=== PATIENT | male | born 1970 | race Caucasian/White ===

== ENCOUNTER 2022-01-26 10:26 | Emergency (ER) | payer BC, SELFPAY ==
[2022-01-26 10:31] VITALS: BP 146/91; PULSE 93; RESP 14; TEMP 37.2; O2SAT 97
--- NOTE | 2022-01-26 12:28 | ED.URI ---
HPI - URI/Sore Throat General Chief Complaint: Upper Respiratory Infection Stated Complaint: Ear Pain/Congestion/Cough Time Seen by Provider: 01/26/22 12:28 Source: patient, RN notes reviewed and old records reviewed Mode of arrival: ambulatory Limitations: no limitations History of Present Illness HPI Narrative: 51-year-old male who presents to [facility] with complaints of 2-3 days history of right ear pain, postnasal drainage, head congestion with persistent cough for past few weeks. Patient denies any known fevers chills or sweats has had COVID vaccinations +booster but did not have flu shot this year.Patient has been using cough drops. MD elicited complaint: other (Right ear pain) Onset (ago): day(s) (2-3) Pain scale (0-10): 6 Treatments prior to arrival: other (cough drops) Related Data Home Medications Medication Instructions Recorded Confirmed cholecalciferol (vitamin D3) 25 25 mcg PO DAILY 02/12/21 01/26/22 mcg (1,000 unit) capsule (Vitamin D3) dapagliflozin 10 mg tablet 10 mg PO DAILY 02/12/21 01/26/22 (Farxiga) levothyroxine 100 mcg tablet 100 mcg PO DAILY 02/12/21 01/26/22 multivitamin 1 tablet PO DAILY 02/12/21 01/26/22 omega 4-wkl-ntn-fish oil 60 mg-90 1 cap PO DAILY 02/12/21 01/26/22 mg-500 mg capsule (Fish Oil) pravastatin 40 mg tablet 40 mg PO DAILY 02/12/21 01/26/22 sildenafil 100 mg tablet 100 mg PO DAILY 02/12/21 01/26/22 insulin lispro 100 unit/mL 01/26/22 01/26/22 subcutaneous solution (Humalog U-100 Insulin) Allergies Allergy/AdvReac Type Severity Reaction Status Date / Time No Known Allergies Allergy Verified 01/26/22 11:18 Review of Systems Review of Systems: CONSTITUTIONAL: Denies fever, chills, or sweats. EYES: Denies visual changes, redness, or discharge. ENT: positive for rhinorrhea, congestion, no sore throat, positive for right ear otalgia. CARDIOVASCULAR: Denies chest pain, palpitations, or edema. RESPIRATORY: persistent cough no dyspnea. GASTROINTESTINAL: Denies abdominal pain, nausea, vomiting, or diarrhea. GENITOURINARY: Denies dysuria or hematuria. SKIN: Denies rash or itching. MUSCULOSKELETAL: Denies back pain, joint pain, or myalgia. NEUROLOGIC: Denies headache, numbness, or weakness. PSYCHIATRIC: Denies anxiety or depression. All systems reviewed & are unremarkable except as noted in HPI and below PMFSH Past Medical History Medical History Diabetes mellitus Erectile disorder due to medical condition in male patient KIMMIE (obstructive sleep apnea) Surgical History Surgical History H/O bariatric surgery Family History Family History Mother Breast cancer Grandparent Type 2 diabetes mellitus Social History Social History Smoking status: Never smoker Alcohol intake: unknown Substance use: unknown Comments At time of signature, agree with nursing past medical, surgical, social and family history. There is no relevant family history pertinent to the presenting complaint Exam Narrative: GENERAL: Well-appearing, well-nourished, and in no acute distress. HEAD: Normocephalic, atraumatic. EYES: PERRLA and EOMI. ENT: Nares clear, clear rhinorrhea or epistaxis. Mucous membranes moist, Right TM briseyda and ulging left TM normal throat red with no lesions or exudates, some tonsil swelling,post nasal drainage NECK: Supple.no lymphadenopathy CHEST: Clear to auscultation. No respiratory distress.persistent cough, SAO2 97% on room air HEART: Regular rate and rhythm. No murmur heard. Normal peripheral pulses. ABDOMEN: Soft, nontender, nondistended, normal active bowel sounds. EXTREMITIES: Normal range of motion. No edema. SKIN: Warm, dry, no rash. NEURO: No focal deficits. Alert and oriented x3. Course Course Emergency Course: Brie
== END 2022-01-26 12:51 | disposition home or self-care (01) ==
PROVIDERS: Emergency Provider Registered Nurse; PCP Internal Medicine
DX: H65.01 Acute serous otitis media, right ear (principal); E11.9 Type 2 diabetes mellitus without complications
CPT/HCPCS: 87081; 87880; 99213; G0463

== ENCOUNTER 2022-05-15 16:38 | Emergency (ER) | payer BC, SELFPAY ==
[2022-05-15 16:43] VITALS: BP 160/94; PULSE 82; RESP 16; TEMP 36.6; O2SAT 96
--- NOTE | 2022-05-15 18:30 | ED.URI ---
HPI - URI/Sore Throat General Chief Complaint: Upper Respiratory Infection Stated Complaint: Cough/Ear Pain Time Seen by Provider: 05/15/22 18:25 Source: patient, RN notes reviewed and old records reviewed Mode of arrival: ambulatory Limitations: no limitations History of Present Illness HPI Narrative: 51 year old male with 1 month duration of cough, congestion, with right ear pain noted today. has taken OTC medication without resolution such as Mucinex DM,oral cough med and cough drops with no improvement. Patient reports that he has been COVID vaccinated and has taken home COVID test which ws negative. Patient denies any known fevers, chills or sweats or any body aches. Patient reports no dyspnea but cough is worse at night making it difficult to sleep. MD elicited complaint: cough Onset (ago): month(s) (1 month cough and PND, one day ear pain right) Pain scale (0-10): 4 Able to tolerate fluids by mouth: Yes Treatments prior to arrival: cold medicine and other (Mucinex DM, cough drops,oral cough med) Related Data Home Medications Medication Instructions Recorded Confirmed cholecalciferol (vitamin D3) 25 25 mcg PO DAILY 02/12/21 05/15/22 mcg (1,000 unit) capsule (Vitamin D3) dapagliflozin 10 mg tablet 10 mg PO DAILY 02/12/21 05/15/22 (Farxiga) levothyroxine 100 mcg tablet 100 mcg PO DAILY 02/12/21 05/15/22 multivitamin 1 tablet PO DAILY 02/12/21 05/15/22 omega 0-vaa-dsv-fish oil 60 mg-90 1 cap PO DAILY 02/12/21 05/15/22 mg-500 mg capsule (Fish Oil) pravastatin 40 mg tablet 40 mg PO DAILY 02/12/21 05/15/22 sildenafil 100 mg tablet 100 mg PO DAILY 02/12/21 05/15/22 insulin lispro 100 unit/mL See Rx Instructions .Route .COMPLEX 01/26/22 01/26/22 subcutaneous solution (Humalog U-100 Insulin) Allergies Allergy/AdvReac Type Severity Reaction Status Date / Time No Known Allergies Allergy Verified 05/15/22 17:12 Review of Systems Review of Systems: CONSTITUTIONAL: Denies malaise, chills, sweats, or fever. EYES: Denies visual changes, redness, or discharge. ENT: Reports rhinorrhea, congestion, sinus pain, right otalgia denies sore throat. CARDIOVASCULAR: Denies chest pain, palpitations, or edema. RESPIRATORY: Reports cough.? Denies dyspnea.hacking and at times loose GASTROINTESTINAL: Denies abdominal pain, nausea, vomiting, diarrhea SKIN: Denies rash or itching. MUSCULOSKELETAL: Denies myalgia. NEUROLOGIC: Denies headache. All systems reviewed & are unremarkable except as noted in HPI and below PMFSH Past Medical History Medical History (Updated 05/19/22 @ 08:07 by Heidi Terrell NP) Diabetes mellitus Elevated cholesterol Erectile disorder due to medical condition in male patient Hypothyroidism KIMMIE (obstructive sleep apnea) Surgical History Surgical History H/O bariatric surgery Family History Family History Mother Breast cancer Grandparent Type 2 diabetes mellitus Social History Social History Smoking status: Never smoker Alcohol intake: unknown Substance use: unknown Comments At time of signature, agree with nursing past medical, surgical, social and family history. There is no relevant family history pertinent to the presenting complaint Exam Narrative: GENERAL: Well-appearing, well-nourished, and in no acute distress. HEAD: Normocephalic EYES: PERRLA, conjunctivae clear ENT: Nares clear, turbinates edematous and erythematous, clear discharge. Mucous membranes moist.Right TM red and bulging, Left TM pearly quintero with dull light reflex; no tragal tenderness. Oropharynx erythematous without lesions. Tonsils not enlarged and without exudate, no drooling, no hoarseness, no trismus, uvula midline.post nasal drainage. NECK: Supple. No lymphadenopathy CHEST: Clear coarse to auscultation, breath
== END 2022-05-15 18:55 | disposition home or self-care (01) ==
PROVIDERS: Emergency Provider Registered Nurse; PCP Internal Medicine
DX: J06.9 Acute upper respiratory infection, unspecified (principal); H65.01 Acute serous otitis media, right ear; E11.9 Type 2 diabetes mellitus without complications; E03.9 Hypothyroidism, unspecified; E78.00 Pure hypercholesterolemia, unspecified
CPT/HCPCS: 99213; G0463

== ENCOUNTER 2023-07-02 07:08 | Outpatient (CLI) | payer BC, SELFPAY ==
[2023-07-02 19:11] LABS: Hematocrit 49.8 % (42.0-52.0); Hemoglobin 16.6 g/dL (14.0-18.0); Mean Corpuscular HGB Conc 33.3 g/dl (32-36); Mean Corpuscular Hemoglobin 29.5 pg (26-34); Mean Corpuscular Volume 88.6 fl (80-100); Mean Platelet Volume 11.7 fl (7.4-10.4); Platelet Count Result 246 k/mm3 (150-375); Red Blood Count 5.62 M/mm3 (4.6-6.20); Red Cell Distribution Width 13.6 % (11.5-14.5); White Blood Count 5.4 K/mm3 (4.5-10.0)
[2023-07-02 19:34] LABS: Alanine Aminotransferase 51 U/L (6-50); Albumin Level 4.5 g/dL (3.5-5.1); Alkaline Phosphatase 106 U/L (38-126); Anion Gap 7 mmol/L (4-12); Aspartate Amino Transferase 72 U/L (17-59); Bilirubin,Total 0.8 mg/dL (0.2-1.3); Blood Urea Nitrogen 17 mg/dL (9-20); Carbon Dioxide 26 mmol/L (22-30); Chloride 109 mmol/L (98-107); Cholesterol 190 mg/dL (0-200); Estimated Glomerular Filt Rate > 60; Glucose 116 mg/dL (65-110); HDL Direct 41 mg/dL; Potassium 3.9 mmol/L (3.4-5.0); Sodium 142 mmol/L (137-145); Triglycerides 210 mg/dL (<150)
[2023-07-02 19:45] LABS: LDL Cholesterol Direct 95 mg/dL
[2023-07-02 20:02] LABS: Prostate Specific Antigen 0.4 ng/mL (< OR = 4.0)
[2023-07-02 21:12] LABS: Creatinine Urine 231.6 mg/dL
[2023-07-02 21:16] LABS: MALB Creatinine Ratio 10.1 mg/g (0-30); Microalbumin Urine Random 23.3 mg/L (0-16.7)
[2023-07-02 21:25] LABS: Hemoglobin A1C 7.3 % (<5.7)
[2023-07-05 08:28] LABS: Testosterone Free 56.8 pg/mL (35.0-155.0); Testosterone Total 324 ng/dL (250-1100)
== END 2023-07-02 07:09 | disposition home or self-care (01) ==
LOC: ANHBWCLAB 07:09
PROVIDERS: PCP Nurse Practitioner Adult Health; Visit Provider Nurse Practitioner Adult Health
DX: Z12.5 Encounter for screening for malignant neoplasm of prostate (principal); E03.9 Hypothyroidism, unspecified; E10.9 Type 1 diabetes mellitus without complications; R53.83 Other fatigue; Z13.9 Encounter for screening, unspecified
CPT/HCPCS: 36415; 80053; 80061; 82043; 83036; 84153; 84402; 84403; 84443; 85027; G0103

== ENCOUNTER 2023-12-10 12:05 | Outpatient (CLI) | payer BC, SELFPAY ==
[2023-12-10 19:02] LABS: Alanine Aminotransferase 53 U/L (6-50); Albumin Level 4.3 g/dL (3.5-5.1); Alkaline Phosphatase 95 U/L (38-126); Anion Gap 6 mmol/L (4-12); Aspartate Amino Transferase 62 U/L (17-59); Bilirubin,Total 0.7 mg/dL (0.2-1.3); Blood Urea Nitrogen 22 mg/dL (9-20); Calcium 9.4 mg/dL (8.4-10.2); Carbon Dioxide 29 mmol/L (22-30); Chloride 104 mmol/L (98-107); Cholesterol 139 mg/dL (0-200); Estimated Glomerular Filt Rate > 60; Glucose 129 mg/dL (65-110); HDL Direct 52 mg/dL; Sodium 139 mmol/L (137-145); Triglycerides 90 mg/dL (<150)
[2023-12-10 19:10] LABS: LDL Cholesterol Direct 49 mg/dL
[2023-12-10 19:23] LABS: Thyroid Stimulating Hormone 0.086 uIU/mL (0.465-4.680)
[2023-12-10 19:40] LABS: Creatinine Urine 151.7 mg/dL
[2023-12-10 19:43] LABS: MALB Creatinine Ratio 5.6 mg/g (0-30); Microalbumin Urine Random 8.5 mg/L (0-16.7)
== END 2023-12-10 12:06 | disposition home or self-care (01) ==
LOC: ANHBWCLAB 12:06
PROVIDERS: PCP Nurse Practitioner Adult Health; Visit Provider Nurse Practitioner Adult Health
DX: E10.9 Type 1 diabetes mellitus without complications (principal)
CPT/HCPCS: 36415; 80053; 80061; 82043; 82565; 84443

== ENCOUNTER 2024-06-08 16:04 | Outpatient (CLI) | payer BC, SELFPAY ==
--- OUTSIDE RECORDS SUMMARY | 2024-06-08 18:00 | XMS_ITS | Referral Summary ---
Author Organization [address] [facility] Address [address] [place] [id number] Care Team Providers Care Oyster Sorter Name Role Phone Barb Carson NP Primary Care Provider [phone] Encounters Date Type Department Care Team Description 04/22/2024 Telephone [facility] Diabetes and Endocrinology [address] [place] [phone] Sarah Beth Turner NP [employer] from Last 3 Months Allergies Active Allergy Reactions Criticality Noted Date Comments Dapagliflozin Other (See comments) Low 05/10/2021 Severe fungal balanitis Medications glucagon (glucagon) 1 mg kit use for major hypoglycemia 2 kit 3 012 Active pen needle, diabetic (UNIFINE PENTIPS PLUS) 31 gauge x 5/16 needle 3 x a day 100 4 011 Active insulin pump syringe (MINIMED SYRINGE RESERVOIR) 3 mL [facility] [place] site every 2 days 45 each 3 012 Active infusion set for insulin pump (MINIMED INFUSION SET) infusion set pt changes site every 2 days 45 3 012 Active sildenafil (VIAGRA) 100 mg tablet TAKE 1 TABLET BY MOUTH ONCE DAILY NEEDED FOR ED 2 019 Active blood glucose diagnostic (CONTOUR NEXT TEST STRIPS) stripIndications :Type 1 diabetes mellitus with hyperglycemia (HCC) USE TO TEST GLUCOSE 6 TIMES DAILY 600 each 3 019 Active cholecalciferol (VITAMIN D-3) 2000 unit capsule 1 capsule (2,000 Units total) Active multivitamin capsule Take 1 capsule by mouth daily Active fish oil-dha-epa 1,200-144-216 mg capsule Take by mouth Active albuterol HFA (PROVENTIL HFA,VENTOLIN HFA,PROAIR HFA) 90 mcg/actuation inhaler INHALE 2 PUFFS BY MOUTH FOUR TIMES DAILY NEEDED FOR SHORTNESS OF BREATH OR WHEEZING 023 Active insulin lispro (HumaLOG) 100 unit/mL vial for injectionIndicat ions:Type 1 diabetes mellitus with hyperglycemia (HCC) Please use as prescribed. 10 mL 1 024 Active phentermine (ADIPEX-P) 37.5 mg tablet TAKE 1 TABLET BY MOUTH DAILY 30 MINUTES BEFORE OR 1 TO 2 HOURS AFTER BREAKFAST 024 Active Mounjaro 15 mg/0.5 mL pen injector ADMINISTER 15 MG UNDER THE SKIN WEEKLY 024 Active potassium gluconate 595 mg (99 mg) tablet Take 1 tablet (595 mg total) by mouth daily Active pravastatin (PRAVACHOL) 80 mg tabletIndication s:Type 1 diabetes mellitus with hyperglycemia (HCC) TAKE 1 TABLET DAILY 90 tablet 3 025 Active levothyroxine (SYNTHROID) 200 mcg tabletIndication s:Type 1 diabetes mellitus with hyperglycemia (HCC) TAKE 1 TABLET DAILY 90 tablet 3 025 Active insulin lispro (HumaLOG) 100 unit/mL vial for injectionIndicat ions:Type 1 diabetes mellitus with hyperglycemia (HCC) INJECT 150 UNITS UNDER THE SKIN DAILY VIA INSULIN PUMP 140 mL 3 025 Active insulin lispro (HumaLOG) 100 unit/mL vial for injectionIndicat ions:Type 1 diabetes mellitus with hyperglycemia (HCC) INJECT 150 UNITS UNDER THE SKIN DAILY VIA INSULIN PUMP 160 mL 3 024 2024 Discontinued Active Problems Problem Noted Date Diagnosed Date Class 3 severe obesity due t o excess calories with serious comorbidity and body mass index (BMI) of 40.0 to 44.9 in adult 07/29/2022 Assessment & Plan (07/29/2022 4:37 PM CDT): Chronic problem. Worsening. Discussed healthy diet and importance of regular physical activity (20- 30min/day, 150min/wk). ozempic 0.25mg weekly sent. Chronic fatigue 01/23/2021 Assessment & Plan (01/24/2022 3:48 PM CERTIFIED ENDOSCOPY TECHNICIAN): Chronic problem, having a new sleep apnea study to see if there's something else he can use (could not tolerate the mask). He requests vitamin D level, ordered. States he had testosterone level checked with PCP and was reasonable per pt, they wanted him to try to treat the sleep apnea first. 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 Currently taking Pravastatin 40mg Last lipid panel: 02/21/24 EEC=773, HH=521. Assessment & Plan (02/20/2023 3:31 PM CERTIFIED ENDOSCOPY TECHNICIAN): Chronic problem. Currently taking Pravastatin 80mg (increased after below labs drawn). Last lipid panel: 01/24/22 MTG=311, BW=330. Will update labs today. Verified that he uses flo[employer]do. Aware to check results/results letter in flo[employer]do. Will contact by phone if needed. Assessment & Plan (11/04/2022 3:47 PM CDT): Chronic problem. Currently taking Pravastatin 80mg (increased after below labs drawn). Last lipid panel: 01/24/22 TGH=450, EU=362. No changes at this time. Assessment & Plan (07/29/2022 4:37 PM CDT): Chronic problem. Has increased Pravastatin to 80mg. Last lipid panel: 01/24/22 NQG=884, RT=617. No changes at this time. Assessment & Plan (01/24/2022 3:47 PM CERTIFIED ENDOSCOPY TECHNICIAN): Chronic problem. On statin therapy, no changes. Assessment & Plan (07/25/2020 4:07 PM CDT): Elevated TG Will consider adding Vascepa Patient is on Pravachol Assessment & Plan (03/23/2020 4:34 PM CERTIFIED ENDOSCOPY TECHNICIAN): Goal of treatment , LDL cholesterol less than 100 ( less than 70 in patients with history of heart attacks and / or strokes ) NonHDL cholesterol ( total cholesterol minus HDL cholesterol ) goal less than 130 ( less than 100 in patients with history of heart attacks and / or strokes ) Low cholesterol, low fat diet was discussed and advised. Daily exercise On statin therapy with Pravachol Assessment & Plan (03/04/2019 3:57 PM CERTIFIED ENDOSCOPY TECHNICIAN): Goal of treatment , LDL cholesterol less than 100 ( less than 70 in patients with history of heart attacks and / or strokes ) NonHDL cholesterol ( total cholesterol minus HDL cholesterol ) goal less than 130 ( less than 100 in patients with history of heart attacks and / or strokes ) Low cholesterol, low fat diet was discussed and advised. Daily exercise On statin therapy Check lipids Assessment & Plan (10/22/2018 4:56 PM CDT): Goal of treatment , LDL cholesterol less than 100 ( less than 70 in patients with history of heart attacks and / or strokes ) NonHDL cholesterol ( total cholesterol minus HDL cholesterol ) goal less than 130 ( less than 100 in patients with history of heart attacks and / or strokes ) Low cholesterol, low fat diet was discussed and advised. Daily exercise On statin therapy Type 1 diabetes mellitus with hyperglycemia 10/19 Assessment & Plan (11/04/2023 2:48 PM CDT): Chronic problem. A1c near goal and stable at 7.5%. Has been having highs 7-10p but he's been playing pickelball 4-5x noc/wk 630-10p & taking off pump at that time. Discussed keeping on (he mentioned belt type system for pump). Current medications: Phentermine 37.5mg daily Mounjaro 15mg weekly Humalog via Medtronic 780G insulin pump BR 12a 1.5, 5a 3, 9a 1.5 CR 2 CF 5 Target 120 AIT 2hr UTD on labs UTD on DM eye exam (02/21/23 no DMR [facility] in [place]) . Strive for regular exercise (30min most days) and diet (get at least 4-5 servings of fruit and veggies daily, avoid processed foods, increase lean protein intake and decrease carb portions as well as fruit juices, regular soda & desserts). Watch carbs and simple sugars. Check the blood sugar guardian sensor. Check the feet daily for skin breakdown and infection. Assessment & Plan (02/20/2023 3:30 PM CERTIFIED ENDOSCOPY TECHNICIAN): Chronic problem. A1c near goal but still elevated. Now 7.5%, was 8.6% 11/04/22. Has upgraded to MM 780G & using Guardian 4 sensors. Will increase the Mounjaro from 5mg to 7.5mg weekly If the increase in Mounjaro does not help lower the afternoon/evening blood sugars he will add a 4p-10p basal rate at 1.7 units/hr. Current medications: Mounjaro 7.5mg weekly Humalog via Medtronic 780G insulin pump BR 12a 1.5, 5a 3, 9a 1.5 CR 2 CF 5 Target 120 AIT 2hr Will update labs today. Verified that he uses flo[employer]do. Aware to check results/results letter in flo[employer]do. Will contact by phone if needed. DM eye exam scheduled tomorrow at [facility] in [place]. Letter sent to get copy of report. Strive for regular exercise (30min most days) and diet (get at least 4-5 servings of fruit and veggies daily, avoid processed foods, increase lean protein intake and decrease carb portions as well as fruit juices, regular soda & desserts). Watch carbs and simple sugars. Check the blood sugar guardian sensor. Check the feet daily for skin breakdown and infection. Assessment & Plan (11/04/2022 3:46 PM CDT): Chronic problem. A1c uncontrolled but stable at 8.6%. has been out of Ozempic at least several weeks. Has not yet upgraded to MM 780G (waiting to use up all old Guardian sensors before moving to new Guardian 4). Will change from Ozempic to Mounjaro 5mg weekly. Sample pen of Ozempic given (0.25mg x 2 weeks then 0.5mg weekly until new Mounjaro rec'd from mail order). Aware to not take both together. Will stop ozempic sample once Mounjaro delivered. Current medications: Ozempic 0.25mg x 2 weeks, increase to 0.5mg weekly until new Mounjaro rec'd. Humalog via Medtronic 770G insulin pump BR 12a 1.9, 5a 2.2, 7a 2.6, 6p 2.8 CR 2 CF 5 Target 120 AIT 2hr UTD on labs. UTD on DM eye exam. Strive for regular exercise (30min most days) and diet (get at least 4-5 servings of fruit and veggies daily, avoid processed foods, increase lean protein intake and decrease carb portions as well as fruit juices, regular soda & desserts). Watch carbs and simple sugars. Check the blood sugar guardian sensor. Check the feet daily for skin breakdown and infection. Assessment & Plan (07/29/2022 4:35 PM CDT): Chronic problem, not at goal. Has been wearing Guardian 3 sensor. Has contacted [employer] re: upgrading to 780G. Intolerance to SGLT2i (yeast infections). Agreeable to retry GLP1 (Ozempic). Sample given. Aware to inject 0.25mg weekly x 4 then increase to 0.5mg weekly. Discussed side effects. Will contact me if any SE or if no problems & he'd like to have refill sent to his pharmacy. 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 Discussed need to increase activity. Strive for regular exercise (30min most days) and diet (get at least 4-5 servings of fruit and veggies daily, avoid processed foods, increase lean protein intake and decrease carb portions as well as fruit juices, regular soda & desserts). Watch carbs and simple sugars. Check the feet daily for skin breakdown and infection. UTD on labs. UTD on DM eye exam. Current medications: Ozempic 0.25mg weekly x4 then increase to 0.5mg weekly. Medtronic 770G with Guardian BR: 12 am 1.9, 5am 2.2, 7pm 2.6, 6pm 2.8 CR 2.5 SF 10 Target 120 Assessment & Plan (01/24/2022 3:50 PM CERTIFIED ENDOSCOPY TECHNICIAN): Chronic problem, not at goal. Showed him improved time in target range from his download earlier this year when in auto mode. He'll try to get back into wearing it. We also discussed non-insulin agents eg GLP1a, he has tried this and SGLT2i in the past. GLP1a did not help and he had a reaction to SGLT2i. Continue working on diet and exercise. Assessment & Plan (05/10/2021 4:41 PM CDT): Hba1c was Lab Results Component Value Date HGBA1C 8.7 05/10/2021 today, indicating inadequate DM control Goal Hba1c and blood glucose explained Diet and exercise were advised Prevention and treatment of hyypoglcyemia were discussed with the patient Blood glucose monitoring : Guardian CGM Adjustment to medications: Pump settings adjusted as follows Basal rates : 12 am 1.9 5am 2.2 7pm 2.6 6pm 2,8 ic 2,5 isf 10 tg 120 Assessment & Plan (01/23/2021 4:28 PM CERTIFIED ENDOSCOPY TECHNICIAN): Hba1c was Lab Results Component Value Date HGBA1C 7.8 01/23/2021 today, indicating inadequate DM control, with severe insulin resistance, needing very high dose of insulin [place] importance of exercise was discussed in order for improve insulin sensitivity. Also diet with low carb intake was discussed We have tried GLP-1 analoga in the past and the patient does not feel that it helps. Will will try Farxiga. Risk of DKA was discussed and the patient advised on doing urine sticks for ketones if you start having any abdominal pain or nausea and or vomiting Prevention and treatment of hyypoglcyemia discussed. Assessment & Plan (07/25/2020 4:04 PM CDT): Hba1c was Lab Results Component Value Date HGBA1C 8.3 07/25/2020 today, indicating Inadequate DM control Goal blood sugars in the 120-150 range , with Hb1c under 7.0 % was explained 1800 calorie, consistent carb diet recommended. No more than 30-45 grams of carbs per meal recommended, as well as avoiding high concentrated sweet drinks . 25-45 min daily exercise, combining both aerobic and resistance exercise recommended. The need to monitor blood glucose before meals and bedtime was discussed. Prevention and treatment of hyypoglcyemia discussed. Pump settings adjusted: IC ratio lowered to 7, ISF lowered to 20 F/u in 4 weeks Assessment & Plan (03/23/2020 4:34 PM CERTIFIED ENDOSCOPY TECHNICIAN): Hba1c was Lab Results Component Value Date HGBA1C 7.8 03/04/2019 today, indicating inadequate DM control Goal blood sugars in the 120-150 range , with Hb1c under 7.0 % was explained 1800 calorie, consistent carb diet recommended. No more than 30-45 grams of carbs per meal recommended, as well as avoiding high concentrated sweet drinks . 25-45 min daily exercise, combining both aerobic and resistance exercise recommended. The need to monitor blood glucose before meals and bedtime was discussed. Prevention and treatment of hyypoglcyemia discussed. Pump settings adjusted: Basal rates increased by 0.2 units / h Will try to upgrade to 670 G system Assessment & Plan (03/04/2019 3:57 PM CERTIFIED ENDOSCOPY TECHNICIAN): Hba1c was Lab Results Component Value Date HGBA1C 7.8 03/04/2019 today, indicating inadequate DM control 1800 calorie, consistent carb diet recommended. No more than 30-45 grams of carbs per meal recommended, as well as avoiding high concentrated sweet drinks . 25-45 min daily exercise, combining both aerobic and resistance exercise recommended. The need to monitor blood glucose before meals and bedtime was discussed. Prevention and treatment of hyypoglcyemia discussed. 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 Your goal sugars are in the 90-130 range Exercise recommendations: It is recommended that you do daily aerobic ( walking, riding a bike, swimming ) and resistance exercises ( light weight lifting, resistance band stretching ) for at least 30 minutes , most days of the week. If you can not walk, chair exercises for 10-15 min a day would help tremendously. As little as 15-20 minutes exercise , in one or two sessions a day, is still very helpful to improve your diabetes control . Diet recommendations: Eat small portion meals, trying not to consume more than 1800 calories a day . Try to eat not more than than 2 servings of carbs ( starches ) wiith your meals. Avoid soft drinks, including regular sodas , fruit juices and sweetened tea. Drink water instead. Eat plenty of green and leafy vegetables, including salads. Medications: Take your medications regularly. Setting phone alarms can help . Keep your medication on the kitchen dinner table, by the bedside table or by the sink where they are visible to you. If you are taking insulin : the insulin that you are currently using does not need to be refrigerated. Keep it where you can see it . Monitor your sugar levels with finger sticks regularly and keep a log sheet or book. Bring your sugar meter and /or a log book or log sheet to every office visit. Start Ozempic 0.25 mg weekly x 4 wks, then continue with 0.5 mg weeky Stop it in case of sever nausea , vomiting or abdominal pain If working well, call in 4-6 wks for us to send a prescription. If you start having low sugars, lower your basal rates by 0.2-0.4 units/h and bolus around 5 less units of insulin with meals. Assessment & Plan (08/28/2017 4:21 PM CDT): A1c 7.1. Variability d/t exercise and not adjusting pump. Continue with diet and exercise efforts. Assessment & Plan (02/20/2017 4:27 PM CERTIFIED ENDOSCOPY TECHNICIAN): A1c 6.1 without lows. Has made appropriate adjustments to lifestyle and insulin pump. Continue to assess trends and adjust as indicated. Assessment & Plan (11/08/2016 10:01 AM CDT): A1c 8.0. Continue to wear sensor. Advised follow up with GI to determine any other issues that may be impacting pc Bg. Insulin pump status 11/08/2016 Assessment & Plan (11/04/2023 2:40 PM CDT): Current medications: Phentermine 37.5mg daily Mounjaro 15mg weekly Humalog via Medtronic 780G insulin pump BR 12a 1.5, 5a 3, 9a 1.5 CR 2 CF 5 Target 120 AIT 2hr Assessment & Plan (02/20/2023 3:19 PM CERTIFIED ENDOSCOPY TECHNICIAN): No pump setting changes. Has upgraded to 780G with Guardian 4 sensor. Assessment & Plan (11/04/2022 3:46 PM CDT): No pump setting changes. Assessment & Plan (07/29/2022 4:32 PM CDT): No pump setting changes. Assessment & Plan (01/24/2022 3:48 PM CERTIFIED ENDOSCOPY TECHNICIAN): No pump setting changes. Assessment & Plan (03/23/2020 4:35 PM CERTIFIED ENDOSCOPY TECHNICIAN): Have long acting , basal insulin ( e.g. Lantus, Levemir, NPH, ) and insulin syringes as back up in case of pump failure If you have to take your insulin pump off for more than 12 h, start taking basal insulin, every 24 h ( take 80 % of the 24 h insulin delivered to you via insulin pump as calculated based on your basal rates ) and inject meal time insulin by injections, calculating the same way you do with your pump bolus ( according with carb intake and blood sugar readings ) Assessment & Plan (10/22/2018 4:18 PM CDT): Have long acting , basal insulin ( e.g. Lantus, Levemir, NPH, ) and insulin syringes as back up in case of pump failure If you have to take your insulin pump off for more than 12 h, start taking basal insulin, every 24 h ( take 80 % of the 24 h insulin delivered to you via insulin pump as calculated based on your basal rates ) and inject meal time insulin by injections, calculating the same way you do with your pump bolus ( according with carb intake and blood sugar readings ) Assessment & Plan (04/16/2018 3:55 PM CERTIFIED ENDOSCOPY TECHNICIAN): Advised to increased MN and 0900 by 0.2 weekly until trend improved. Advised to contact medtronic to provide replacement pump. Provided with Andrés sample and instructed how to use in the event of pump failure. Use of temp basal reviewed. Assessment & Plan (08/28/2017 4:20 PM CDT): No change to settings. Instructed to use temp basal for exercise to avoid hypoglycemia which requires treatment, thus increasing BG and adding calories. Assessment & Plan (05/22/2017 4:09 PM CDT): Will not recommend changes to settings today. Set up [facility] so pump upload can be sent if any issues occur with blood glucose control. Assessment & Plan (02/20/2017 4:27 PM CERTIFIED ENDOSCOPY TECHNICIAN): No change to pump settings. Assessment & Plan (11/08/2016 10:03 AM CDT): He is supposed to be upgrading to 670G which should help stabilize some of the fluctuations in his BG pattern. Will adjust rates as indicated at that time. Hypothyroidism 03/29/2013 Overview (05/24/2016): HYPOTHYROIDISM NOS Assessment & Plan (11/04/2023 1:58 PM CDT): Chronic problem. Clinically & biochemically euthyroid on current levothyroxine 200mcg daily. Assessment & Plan (02/20/2023 3:30 PM CERTIFIED ENDOSCOPY TECHNICIAN): Chronic problem. Currently taking levothyroxine 200mcg daily. Clinically & biochemically euthyroid. Will update TFTs today. Verified that he uses mychart. Aware to check results/results letter in [employer]. Will contact by phone if needed. Assessment & Plan (11/04/2022 3:40 PM CDT): Chronic problem. Currently taking levothyroxine 200mcg daily. Clinically & biochemically euthyroid. Will update TFTs again at next OV. Assessment & Plan (07/29/2022 4:35 PM CDT): Chronic problem. States that he's been taking levothyroxine 200mcg (instead of the 100mcg per chart). Will update TFTs today. Verified that he uses flo.do. Aware to check results/results letter in flo[employer]do. Will contact by phone if needed. Assessment & Plan (01/24/2022 3:47 PM CERTIFIED ENDOSCOPY TECHNICIAN): Clinically and biochemically euthyroid. No medication changes. Update TFTs. Assessment & Plan (01/23/2021 4:29 PM CERTIFIED ENDOSCOPY TECHNICIAN): Uncontrolled Increase levothyroxine to 100 mcg daily but to tablets on Saturdays and Sundays Assessment & Plan (07/25/2020 4:08 PM CDT): Thyroid function tests, including TSH and free T4 were requested Will adjust dose of Levothyroxine accordingly . If there is a need to make changes, will recheck levels in 2-3 months. Instructions to patient on taking medication properly : in the morning, on an empty stomach , 1 h part from food and/or other meds. Assessment & Plan (03/23/2020 4:39 PM CERTIFIED ENDOSCOPY TECHNICIAN): Continue Levothyroxine at 88 mcg daily Assessment & Plan (03/04/2019 3:56 PM CERTIFIED ENDOSCOPY TECHNICIAN): Will check TSH and free T4 Will adjust dose of Levothyroxine accordingly . If there is a need to make changes, will recheck levels in 2-3 months. Instructions to patient on taking medication properly : in the morning, on an empty stomach , 1 h part from food and/or other meds. If any doses are missed, can take 2-3 tab together ,to make up for the missed dose; make sure at the end to the week, 7 tabs have been taken. Assessment & Plan (10/22/2018 4:19 PM CDT): Continue Levothyroxine at current dose. Assessment & Plan (04/16/2018 3:56 PM CERTIFIED ENDOSCOPY TECHNICIAN): Will check TFT's and adjust medication as indicated. Assessment & Plan (05/22/2017 4:10 PM CDT): TSH at goal on current dose of thyroid replacement Assessment & Plan (02/20/2017 4:29 PM CERTIFIED ENDOSCOPY TECHNICIAN): Will review recent labs and adjust medication as indicated. Assessment & Plan (11/08/2016 9:55 AM CDT): Reviewed appropriate way to take medication. Check labs in 8 weeks. Resolved Problems Problem Noted Date Diagnosed Date Resolved Date Non morbid obesity due to excess calories 11/08/2016 07/29/2022 Assessment & Plan (02/20/2017 4:27 PM CERTIFIED ENDOSCOPY TECHNICIAN): Continue weight loss efforts. Assessment & Plan (11/08/2016 9:55 AM CDT): Importance of following diet and exercising discussed. Type 1 diabetes mellitus without complication 06/16/19 14 02/20/2023 Overview (05/24/2016): DMI WO CMP NT ST [facility] Pure hypercholesterolemia 03/29/2013 Overview (05/24/2016): PURE HYPERCHOLESTEROLEM Assessment & Plan (04/16/2018 3:56 PM CERTIFIED ENDOSCOPY TECHNICIAN): Check lipid panel Assessment & Plan (08/28/2017 4:22 PM CDT): Continue statin and diet efforts. Advised to make low fat choices on high protein diet. Assessment & Plan (05/22/2017 4:12 PM CDT): LDL elevated a bit but on high protein diet with red meat and eggs. Recommend decreasing amount of red meat. Assessment & Plan (02/20/2017 4:28 PM CERTIFIED ENDOSCOPY TECHNICIAN): Will obtain and review results of recent labs. Assessment & Plan (11/08/2016 9:57 AM CDT): Check labs Pure hyperglyceridemia 11/03/200607/29 Overview (05/24/2016): PURE HYPERGLYCERIDEMIA Social History Tobacco Use Types Packs/Day Years Used Date Smoking Tobacco: Never Smokeless Tobacco: Never Tobacco Cessation:Counseling Given: Not Answered Alcohol Use Standard Drinks/Week Comments Yes 0 (1 standard drink = 0.6 oz pur e alcohol) PHQ-2 Answer Date Recorded PHQ-2 Total Score (If total score is 3 or more points, staff should administer the PHQ-9) 0 05/10/2021 Sex and Gender Information Value Date Recorded Sex Assigned at Not on file Legal Sex Male 8:08 AM CERTIFIED ENDOSCOPY TECHNICIAN Gender Identity Not on file Sexual Orientation Not on file Last Filed Vital Signs Vital Sign Reading Time Taken Comments Blood Pressure 116/78 11/04/2023 1:51 PM CDT Pulse 95 11/04/2023 1:51 PM CDT Temperature - - Respiratory Rate 18 11/04/2023 1:51 PM CDT Oxygen Saturation - - Inhaled Oxygen Concentration - - Weight 105.7 kg (233 lb) 11/04/2023 1:51 PM CDT Height 177.8 cm (5' 10 ) 11/04/2023 1:51 PM CDT Body Mass Index 33.43 11/04/2023 1:51 PM CDT Plan of Treatment Not on file Procedures Procedure Name Priority Date/Time Associated Diagnosis Comments POCT HEMOGLOBIN A1C Routine 11/04/2023 1 :55 PM CDT Type 1 diabetes mellitus with hyperglycemia (HCC) HM DIABETES EYE EXAM Routine 10/21/2023 9:17 AM CDT EGFR Routine 02/20/2023 3:44 PM CERTIFIED ENDOSCOPY TECHNICIAN Type 1 diabetes mellitus with hyperglycemia (HCC) LIPID PANEL Routine 02/20/2023 3:44 PM CERTIFIED ENDOSCOPY TECHNICIAN Type 1 diabetes mellitus with hyperglycemia (HCC) Mixed diabetic hyperlipidemia associated with type 1 diabetes mellitus (HCC) ALBUMIN CREATININE RATIO, URINE Routine 02/20/2023 3:44 PM CERTIFIED ENDOSCOPY TECHNICIAN Type 1 diabetes mellitus with hyperglycemia (HCC) TSH Routine 02/20/2023 3:44 PM CERTIFIED ENDOSCOPY TECHNICIAN Acquired hypothyroidism from Last 3 Months or Most Recently Relevant to Health Maintenance Results * (ABNORMAL) POCT hemoglobin A1c (11/04/2023 1:55 PM CDT) Hemoglobin A1C, POC 7.5 4.0 - 5.6 % Blood 11/04/2023 1:55 PM CDT Sarah Beth Turner NP POINT OF CARE TEST ORDERA BLES Final Result * HM DIABETES EYE EXAM (10/21/2023 9:17 AM CDT) Historical Provider HEALTH MAINTENANCE Edited Result - Final * eGFR (02/20/2023 3:44 PM CERTIFIED ENDOSCOPY TECHNICIAN) eGFR 100 mL/min/1. 73 m2 TED ERIC Comment: Interpretive Data Reference Interval Normal >/= 90 mL/min/1.73m2 Mildly decreased* 60 - 89 mL/min/1.73m2 Mildly to moderately decreased 45 - 59 mL/min/1.73m2 Moderately to severely decreased 30 - 44 mL/min/1.73m2 Severely decreased 15 - 29 mL/min/1.73m2 Kidney Failure < 15 mL/min/1.73m2 *Relative to young adult level Estimated glomerular filtration rate is determined by the 2020 CKD-EPI equation recommended by the National Kidney Foundation (A Unifying Approach to GFR Estimation: Recommendations of the NKF-ASK Task Force on Reassessing the Inclusion of Race in Diagnosing Kidney Disease, JASN 2020). The CKD-EPI equation should not be used for patients with unstable renal function and has not been validated in children and those over 70. Current interpretive data was last reviewed 2020. Blood 02/20/2023 3:44 PM CERTIFIED ENDOSCOPY TECHNICIAN 02/21/2023 8:58 AM CERTIFIED ENDOSCOPY TECHNICIAN Sarah Beth Turner CUSH[employer] LAB BLOOD ORDERABLES Swathi l Result Performing Organization Address [facility] de Phone Number [facility] [id number] [facility] [employer] ([employer] [place] [address] * Albumin Creatinine Ratio, Urine (02/20/2023 3:44 PM CERTIFIED ENDOSCOPY TECHNICIAN) Albumin Ur 14.4 mg/L [facility] Comment: Interpretive Data No reference range established. Current interpretive data was last revised 2018. Creatinine Ur 163.6 mg/dL [facility] Comment: Interpretive Data No reference range established. Current interpretive data was last revised 2018. Albumin Creatinine Ratio, Ur 9 1 - 29 mg/g [facility] Urine 02/20/2023 3:44 PM CERTIFIED ENDOSCOPY TECHNICIAN 02/21/2023 8:53 AM CERTIFIED ENDOSCOPY TECHNICIAN us Sarah Bethsivan Turner [employer] LAB URINE ORDERABLES Swathi l Result Performing Organization Address [facility] de Phone Number [phone] [address] Department [employer] ([employer] [place] [address] * TSH (02/20/2023 3:44 PM CERTIFIED ENDOSCOPY TECHNICIAN) Thyroid Stimulating Hormone 2.84 0.30 - 4.20 mcIUnit/mL [facility] Blood 02/20/2023 3:44 PM CERTIFIED ENDOSCOPY TECHNICIAN 02/21/2023 8:53 AM CERTIFIED ENDOSCOPY TECHNICIAN Sarah Beth Turner [employer] LAB BLOOD ORDERABLES Swathi l Result Performing Organization Address [facility] de Phone Number [facility] [id number] [address] [employer] ([employer] [place] [address] * (ABNORMAL) Lipid panel (02/20/2023 3:44 PM CERTIFIED ENDOSCOPY TECHNICIAN) Cholesterol 230(H) 30 - 199 mg/dL [facility] Comment: Interpretive Data Ages < or = 19 years Acceptable: <170 mg/dL Borderline high: 170-199 mg/dL High: >or= 200 mg/dL Ages > or = 20 years Desirable: <200 mg/dL Borderline high: 200-239 mg/dL High: >or= 240 mg/dL Literature References: 1. Expert Panel on Integrated Guidelines for Cardiovascular Health and Risk Reduction in Children and Adolescents. Pediatrics 2011;128:S213 2. NCEP Expert Panel. Circulation 2004;110:227 Current Interpretive Data was last revised on 2017. Triglycerides 288(H) <=149 mg/dL [facility]ED Comment: Interpretive Data Ages < or = 9 years Acceptable: <75 mg/dL Borderline high: 75-99 mg/dL High: >or= 100 mg/dL Ages 10 to 20 years Acceptable: <90 mg/dL Borderline high: 90-129 mg/dL High: >or= 130 mg/dL Ages > or = 20 years Desirable: <150 mg/dL Borderline high: 150-199 mg/dL High: 200-499 mg/dL Very high: >or= 499 mg/dL Literature References: 1. Expert Panel on Integrated Guidelines for Cardiovascular Health and Risk Reduction in Children and Adolescents. Pediatrics 2011;128:S213 2. NCEP Expert Panel. Circulation 2004;110:227 Current Interpretive Data was last revised on 2017. HDL 46 >=40 mg/dL [facility] ERIC Comment: Interpretive Data Ages < or = 19 years Acceptable: >45 mg/dL Borderline low: 40-45 mg/dL Low: <40 mg/dL Ages > or = 20 years Desirable: >or= 60 mg/dL Low: <40 mg/dL Literature References: 1. Expert Panel on Integrated Guidelines for Cardiovascular Health and Risk Reduction in Children and Adolescents. Pediatrics 2011;128:S213 2. NCEP Expert Panel. Circulation 2004;110:227 Current Interpretive Data was last revised on 2017. LDL, calculated 126 <=129 mg/dL [facility] ERIC Comment: Interpretive Data Ages < or = 19 years Acceptable: <110 mg/dL Borderline high: 110-129 mg/dL High: >or= 130 mg/dL Ages > or = 20 years Optimal: <100 mg/dL Near optimal: 100-129 mg/dL Borderline high: 130-159 mg/dL High: >160 mg/dL Literature References: 1. Expert Panel on Integrated Guidelines for Cardiovascular Health and Risk Reduction in Children and Adolescents. Pediatrics 2011;128:S213 2. NCEP Expert Panel. Circulation 2004;110:227 Current Interpretive Data was last revised on 2017. Non-HDL Cholesterol 184 mg/dL [facility] ERIC Comment: Interpretive Data Ages < or = 19 years Acceptable: <120 mg/dL Borderline high: 120-144 mg/dL High: >145 mg/dL Ages > or = 20 years When triglycerides are >200 mg/dL, Non-HDL cholesterol is a secondary target of therapy with treatment goals that are 30 mg/dL greater than the LDL cholesterol target. Literature References: 1. Expert Panel on Integrated Guidelines for Cardiovascular Health and Risk Reduction in Children and Adolescents. Pediatrics 2011;128:S213 2. NCEP Expert Panel. Circulation 2004;110:227 Current Interpretive Data was last revised on 2017. Chol/HDL ratio 5 [facility] Blood 02/20/2023 3:44 PM CERTIFIED ENDOSCOPY TECHNICIAN 02/21/2023 8:53 AM CERTIFIED ENDOSCOPY TECHNICIAN Sarah Beth Turner CUSHION MA[employer] LAB BLOOD ORDERABLES Swathi l Result TED [id number] [address] Department [place] [address] from Last 3 Months or Most Recently Relevant to Health Maintenance Insurance [facility] [employer] CHOICE PIPE ACCESS CHOICE Care Teams Oyster Sorter Relationship Specialty Start Date End Date Barb Carson NP [address] [place] [address] PCP - General Nurse Practitioner 11/04/23
--- OUTSIDE RECORDS SUMMARY | 2024-06-08 18:00 | XMS_ITS | Clinical Summary ---
Author Organization [facility] Address [address] [place] [address] Phone Care Team Providers Care Bioinformatician Name Role Phone Unavailable Primary Care Provider Unavailabl e Allergies No known active allergies Medications sildenafil citrate (VIAGRA) 100 MG Tablet TAKE 1 TABLET BY MOUTH ONCE DAILY NEEDED FOR ERECTILE DYSFUNCTION 6 Tab 0 Active Synthroid 88 MCG Tablet 0 Active pravastatin (PRAVACHOL) 40 MG Tablet 0 Active Insulin Lispro (HUMALOG SC) by Subcutaneous route. Active sildenafil citrate (VIAGRA) 100 MG Tablet Take 1 Tablet by mouth every 48 hours as needed for Erectile Dysfunction. 30 Tablet 2 1 Active Active Problems Problem Noted Date Diagnosed Date Type 2 diabetes mellitus wit hout complication, with long-term current use of insulin 03/09/2020 Mixed hyperlipidemia 03/09/2020 Other male erectile dysfunction 03/09/2020 Other specified hypothyroidism 03/09/2020 Social History Tobacco Use Types Packs/Day Years Used Date Smoking Tobacco: Never Smokeless Tobacco: Never PHQ-2 Answer Date Recorded Total Score - Questions 1-9 0 02/18 Sex and Gender Information Value Date Recorded Sex Assigned at Not on file Legal Sex Male 7:14 PM CDT Gender Identity Not on file Sexual Orientation Not on file Last Filed Vital Signs Vital Sign Reading Time Taken Comments Blood Pressure 110/68 03/09/2020 4:14 PM [employer]URCH COMMUNICATIONS ADMINISTRATOR Pulse 84 03/09/2020 4:14 PM [employer]UR[employer] COMMUNICATIONS ADMINISTRATOR Temperature 36.7 C (98 F) 03/09/2020 4:14 PM [employer]UR[employer] COMMUNICATIONS ADMINISTRATOR Respiratory Rate - - Oxygen Saturation - - Inhaled Oxygen Concentration - - Weight 111.6 kg (246 lb) 03/09/2020 4:14 PM CHUR[employer] COMMUNICATIONS ADMINISTRATOR Height 182.9 cm (6') 03/09/2020 4:14 PM CHURCH COMMUNICATIONS ADMINISTRATOR Body Mass Index 33.36 03/09/2020 4:14 PM CHURCH COMMUNICATIONS ADMINISTRATOR Plan of Treatment Health Maintenance Due Date Last Done Comments Diabetes: Eye Exam 1972 Diabetes: Foot Exam 1972 Hepatitis C Virus (HCV) Screening 1972 TdaP Immunization 1972 Hepatitis B Immunization (1 of 3 - 19+ 3-dose series) 10/31/1991 Pneumococcal Immunization (5 0+ years) (1 of 2 - PCV) 10/31/1991 Colonoscopy 2017 Colorectal Cancer Screening 2017 Diabetes: Hemoglobin A1c 09/07/2020 03/10/2020 Diabetes: Nephropathy Screening 03/10/2021 03/10/2020, 03/10/2020, 03/23/2019 Cologuard 2022 Immunochemical Fecal Occult Blood 2022 Zoster Immunization (1 of 2) 2022 SARS-COV-2 Immunization ( season) 2023 02/12/2021, 05/09/2020, 04/18/2020 Influenza Immunization (Seas on Ended) 2024 Respiratory Syncytial Virus (RSV) Immunization (Adult) (1 - 1-dose 75+ series) 10/31/2047 Meningococcal Immunization (ACWY) Aged Out No longer eligible b ased on patient's age to complete this topic Rotavirus Immunization Aged Out No lo nger eligible based on patient's age to complete this topic Procedures Procedure Name Priority Date/Time Associated Diagnosis Comments UR MICROALBUMIN/CREATININ E RATIO RANDOM Routine 03/10/2020 Type 2 diabetes mellitus without complication, with long-term current use of insulin (HCC) HEMOGLOBIN A1C W/ ESTIMATED GLUCOSE Routine 03/10/2020 Type 2 diabetes mellitus without complication, with long-term current use of insulin (HCC) from Last 3 Months or Most Recently Relevant to Health Maintenance Results * HEMOGLOBIN A1C W/ ESTIMATED GLUCOSE (03/10/2020) HGB-A1C 8.1 % Blood 03/10/2020 us Francisco Hill MD CHEMISTRY ORDERABLES Final Result * UR MICROALBUMIN/CREATININE RATIO RANDOM (03/10/2020) ALB/CREAT RATIO 3 Normal - Normal Urine 03/10/2020 us Francisco Hill MD URINE ORDERABLES Final Resu lt from Last 3 Months or Most Recently Relevant to Health Maintenance
--- OUTSIDE RECORDS SUMMARY | 2024-06-08 18:00 | XMS_ITS | Continuity of Care Document ---
Author Organization [facility] Address [address] [address] [place] [address] Phone Care Team Providers Care Pneumatic Drum Sander Name Role Phone Ronnie Gonzales MD Unavailable Unavailable Allergies, Adverse Reactions, Alerts Substance Reaction Status Criticality No Known Allergies Active No Inform ation Medications Medication Instructions Dosage Effective Dates (start - stop) Status Comments ibuprofen 800 mg tablet take 1 tablet (800MG) by oral route every 6 - 8 hours with food 800 MG - Active prednisone 20 mg tablet take 3 Tablet (60MG) by oral route every day 60 MG - Active [place] 7.5 mg-325 mg tablet take 1 tablet by oral route every 4 - 6 hours as needed for pain 1 tablet - Active avoid driving or operate machines Procedures Procedure Date OFFICE/OUTPATIENT VISIT, EST OFFICE/OUTPATIENT VISIT, EST OFFICE/OUTPATIENT VISIT, EST OFFICE/OUTPATIENT VISIT, EST Advance Directives Directive Yes / No Effective Date File Name No Information Encounters Encounter Description Practice Location Reason(s) For Visit Diagnoses Date Provider Providers Copied on Encounter [facility], [address] [place], [id number], [place] tel:[phone] [facility] No Information 0 4 Christian Trujillo. [address] [place] [place], [id number] , [place]. tel:[phone] OFFICE/OUTPAT IENT VISIT, EST [facility], [address] [place], [id number], tel:[phone] [facility] parethesia (chief complaint) Sciatica Due To Displacement Of Lumbar DiscPain in joint involving lower legDisturbance of skin sensation 3 Christian Trujillo. [address], [address], [place], [place], [id number] , [place]. tel:[phone] Referring Provider: [address], [place], [place], [id number]. tel:[phone] OFFICE/OUTPAT IENT VISIT, [facility], [address], [place], [place], [id number], [place] tel:[phone] [facility] right hemstring pain (chief complaint) Pain in joint involving lower legSprain of other specified sites of hip and thighSleep Apnea 3 Christian Trujillo. [address], [address], [place], [place], [id number] , [place]. tel:[phone] Referring Provider: [address], [place], [place], [id number]. tel:[phone] OFFICE/OUTPAT IENT VISIT, [facility], [address], [place], [place], [id number], [place] tel:[phone] [facility] sleep apnea (chief complaint)D M. (chief complaint) Sleep ApneaDiabetes Mellitus, Adult Onset, Uncontrolled 3 Christian Durand [address], [address], [place], [place], [id number] , [place]. [phone] Referring Provider: Henry [address], [place], [place], [id number]. tel:[phone] OFFICE/OUTPAT IENT VISIT, [facility], [address], [place], [place], [address], [place] tel:[phone] [facility] right ear pain (chief complaint) Unspecified otitis media 3 Christian Trujillo. [address], [address], [place], [place], [id number] , [place]. tel:[phone] Referring Provider: [place], [id number]. tel:[phone] Family History Family Member Type Diagnosis Age At Onset No Information Payers Payer name Insurance type Covered constitution party ID Authoriza tion(s) No Information Social History Type Description Quantity Date Captured Comments Sex Male Smoking Status No Information Chief Complaint And Reason For Visit No Information Plan Of Treatment Date Type Action Status Referral Ordered: Referral: Neurosurgery. ordered Referral Ordered: Physical Therapy (related to Pain in joint involving lower leg) ordered Referral Referred To: Physical Therapy Ordered: Referral: Physical Therapy. ordered Referral Ordered: US VENOUS DOPPLER ordered History Of Present Illness Encounter Date Complaint History Of Prese nt Illness No Information Instructions Date Instruction Additional Infor mation No Information Assessments Type Assessment Date No Information
--- OUTSIDE RECORDS SUMMARY | 2024-06-08 18:00 | XMS_ITS | Clinical Summary ---
Author Organization [facility] Address [address] [place] [address] Care Team Providers Care Cyber Analyst Name Role Phone Barb Carson NP Primary Care Provider [phone] Allergies Active Allergy Reactions Criticality Noted Date Comments Dapagliflozin Other (See comments) Low 05/10/2021 Severe fungal balanitis Medications glucagon (glucagon) 1 mg kit use for major hypoglycemia 2 kit 3 012 Active pen needle, diabetic (UNIFINE PENTIPS PLUS) 31 gauge x 5/16 needle 3 x a day 100 4 011 Active insulin pump syringe (MINIMED SYRINGE RESERVOIR) 3 mL misc pt changes site every 2 days 45 [...] 01/23/2021 Assessment & Plan (01/24/2022 3:48 PM BAG BLEACHER): Chronic problem, having a new sleep apnea study to see if there's something else he can use (could not tolerate the mask). He requests vitamin D level, ordered. States he had testosterone level checked with PCP and was reasonable per pt, they wanted him to try to treat the sleep apnea first. Assessment & Plan (01/23/2021 4:29 PM BAG BLEACHER): Patient with history of a sleep apnea, not using his CPAP machine Will check testosterone levels Mixed diabetic hyperlipidemi a associated with type 1 diabetes mellitus 10/22/2018 Assessment & Plan (11/04/2023 2:00 PM CDT): Chronic problem. Currently taking Pravastatin 40mg Last lipid panel: 02/21/24 KOQ=186, LN=781. Assessment & Plan (02/20/2023 3:31 PM BAG BLEACHER): Chronic problem. Currently taking Pravastatin 80mg (increased after below labs drawn). Last lipid panel: 01/24/22 GFW=729, VO=326. Will update labs today. Verified that he uses [facility]. Aware to check results/results letter in [facility]. Will contact by phone if needed. Assessment & Plan (11/04/2022 3:47 PM CDT): Chronic problem. Currently taking Pravastatin 80mg (increased after below labs drawn). Last lipid panel: 01/24/22 RCL=153, LY=837. No changes at this time. Assessment & Plan (07/29/2022 4:37 PM CDT): Chronic problem. Has increased Pravastatin to 80mg. Last lipid panel: 01/24/22 MIV=357, AM=639. No changes at this time. Assessment & Plan (01/24/2022 3:47 PM BAG BLEACHER): Chronic problem. On statin therapy, no changes. Assessment & Plan (07/25/2020 4:07 PM CDT): Elevated TG Will consider adding Vascepa Patient is on Pravachol Assessment & Plan (03/23/2020 4:34 PM BAG BLEACHER): Goal of treatment , LDL cholesterol less [...] Pravachol Assessment & Plan (03/04/2019 3:57 PM BAG BLEACHER): Goal of treatment , LDL cholesterol less [...] on DM eye exam (02/21/23 no DMR [facility] in [place]) . Strive for regular exercise (30min most [...] infection. Assessment & Plan (02/20/2023 3:30 PM BAG BLEACHER): Chronic problem. A1c near goal but still [...] update labs today. Verified that he uses [facility]. Aware to check results/results letter in [facility]. Will contact by phone if needed. DM eye exam scheduled tomorrow at [facility] in [place]. Letter sent to get copy of report. [...] been wearing Guardian 3 sensor. Has contacted [facility] re: upgrading to 780G. Intolerance to SGLT2i [...] 120 Assessment & Plan (01/24/2022 3:50 PM BAG BLEACHER): Chronic problem, not at goal. Showed him [...] 120 Assessment & Plan (01/23/2021 4:28 PM BAG BLEACHER): Hba1c was Lab Results Component Value Date HGBA1C 7.8 01/23/2021 today, indicating inadequate DM control, with severe insulin resistance, needing very high dose of insulin [place] importance of exercise was discussed in order [...] weeks Assessment & Plan (03/23/2020 4:34 PM BAG BLEACHER): Hba1c was Lab Results Component Value Date [...] system Assessment & Plan (03/04/2019 3:57 PM BAG BLEACHER): Hba1c was Lab Results Component Value Date [...] small portions, cutting in snacking Will try Sosa Assessment & Plan (10/22/2018 4:18 PM CDT): Your Hba1c today was: Lab Results Component Value Date HGBA1C 7.7 10/22/2018 meaning a 3 month average sugar of : 170 Your goal hba1c is under 7.0 to prevent retirement diabetes complications ( eye , kidney and [...] efforts. Assessment & Plan (02/20/2017 4:27 PM BAG BLEACHER): A1c 6.1 without lows. Has made appropriate [...] 2hr Assessment & Plan (02/20/2023 3:19 PM BAG BLEACHER): No pump setting changes. Has upgraded to 780G with Guardian 4 sensor. Assessment & Plan (11/04/2022 3:46 PM CDT): No pump setting changes. Assessment & Plan (07/29/2022 4:32 PM CDT): No pump setting changes. Assessment & Plan (01/24/2022 3:48 PM BAG BLEACHER): No pump setting changes. Assessment & Plan (03/23/2020 4:35 PM BAG BLEACHER): Have long acting , basal insulin ( [...] ) Assessment & Plan (04/16/2018 3:55 PM BAG BLEACHER): Advised to increased MN and 0900 by 0.2 weekly until trend improved. Advised to contact [employer] to provide replacement pump. Provided with Andrés luo and instructed how to use in the [...] control. Assessment & Plan (02/20/2017 4:27 PM BAG BLEACHER): No change to pump settings. Assessment & [...] daily. Assessment & Plan (02/20/2023 3:30 PM BAG BLEACHER): Chronic problem. Currently taking levothyroxine 200mcg daily. Clinically & biochemically euthyroid. Will update TFTs today. Verified that he uses [facility]. Aware to check results/results letter in [facility]. Will contact by phone if needed. Assessment & Plan (11/04/2022 3:40 PM CDT): Chronic problem. Currently taking levothyroxine 200mcg daily. Clinically & biochemically euthyroid. Will update TFTs again at next OV. Assessment & Plan (07/29/2022 4:35 PM CDT): Chronic problem. States that he's been taking levothyroxine 200mcg (instead of the 100mcg per chart). Will update TFTs today. Verified that he uses [facility]. Aware to check results/results letter in [facility]. Will contact by phone if needed. Assessment & Plan (01/24/2022 3:47 PM BAG BLEACHER): Clinically and biochemically euthyroid. No medication changes. Update TFTs. Assessment & Plan (01/23/2021 4:29 PM BAG BLEACHER): Uncontrolled Increase levothyroxine to 100 mcg daily [...] meds. Assessment & Plan (03/23/2020 4:39 PM BAG BLEACHER): Continue Levothyroxine at 88 mcg daily Assessment & Plan (03/04/2019 3:56 PM BAG BLEACHER): Will check TSH and free T4 Will [...] dose. Assessment & Plan (04/16/2018 3:56 PM BAG BLEACHER): Will check TFT's and adjust medication as indicated. Assessment & Plan (05/22/2017 4:10 PM CDT): TSH at goal on current dose of thyroid replacement Assessment & Plan (02/20/2017 4:29 PM BAG BLEACHER): Will review recent labs and adjust medication as indicated. Assessment & Plan (11/08/2016 9:55 AM CDT): Reviewed appropriate way to take medication. Check labs in 8 weeks. Resolved Problems Problem Noted Date Diagnosed Date Resolved Date Non morbid obesity due to excess calories 11/08/2016 07/29/2022 Assessment & Plan (02/20/2017 4:27 PM BAG BLEACHER): Continue weight loss efforts. Assessment & Plan (11/08/2016 9:55 AM CDT): Importance of following diet and exercising discussed. Type 1 diabetes mellitus without complication 06/16/19 14 02/20/2023 Overview (05/24/2016): DMI WO CMP NT [facility] Pure hypercholesterolemia 03/29/2013 Overview (05/24/2016): PURE HYPERCHOLESTEROLEM Assessment & Plan (04/16/2018 3:56 PM BAG BLEACHER): Check lipid panel Assessment & Plan (08/28/2017 4:22 PM CDT): Continue statin and diet efforts. Advised to make low fat choices on high protein diet. Assessment & Plan (05/22/2017 4:12 PM CDT): LDL elevated a bit but on high protein diet with red meat and eggs. Recommend decreasing amount of red meat. Assessment & Plan (02/20/2017 4:28 PM BAG BLEACHER): Will obtain and review results of recent labs. Assessment & Plan (11/08/2016 9:57 AM CDT): Check labs Pure hyperglyceridemia 11/03/200607/29 Overview (05/24/2016): PURE HYPERGLYCERIDEMIA Encounters Date Type Department Care Team Description 04/22/2024 Telephone [facility] Diabetes and Endocrinology [address] [place] [id number] Sarah Beth Turner NP [employer] from Last 3 Months Surgical History Surgery Date Site/Laterality Comments GASTRIC BYPASS 2007 Gastric bypass Medical History Medical History Date Comments Disorder of thyroid Thyroid dise ase Diabetes mellitus type I (HCC) Family History Medical History Relation Name Comments Diabetes type II Other Family hist ory of Diabetes -Type 2; Relation Name Status Comments Other Social History Tobacco Use Types Packs/Day Years [...] on file Legal Sex Male 8:08 AM BAG BLEACHER Gender Identity Not on file Sexual Orientation Not on file Obstetrics History Last Filed Vital Signs Vital Sign Reading [...] 11/04/2023 1:51 PM CDT Plan of Treatment Health Maintenance Due Date Last Done Comments Colon Cancer Screening-Colonoscopy 1972 Hepatitis C Screening 1972 Prostate Cancer Screening-PSA 1972 DTaP/Tdap/Td Vaccine (1 - Tdap) 10/31/1983 Hepatitis B Screening 1990 Regular Well Visit/Exam 18-64 1990 Pneumococcal vaccine <65 (1 of 2 - PCV) 10/31/1991 Depression Screening 05/10/2022 05/10/2021, 07/25/2020, 03/04/2019, Additional history exists Zoster Vaccine (1 of 2) 2022 Albumin Creatinine Ratio, Urine 02/21/2024 02/20/2023, 01/24/2022, 08/07/2020, Additional history exists Lipid Panel 02/21/2024 02/20/2023, 09/2021, 07/25/2020, Additional history exists TSH Level 02/21/2024 02/20/2023, 07/18, 01/24/2022, Additional history exists eGFR 02/21/2024 02/20/2023, 09/2021, 05/10/2021 Hemoglobin A1C 05/03/2024 11/04/2023, 05/2023, 11/04/2022, Additional history exists Influenza Vaccine (Season Ended) 2024 Foot Exam 11/03/2024 11/04/2023, 07/18, 03/23/2020, Additional history exists Dilated Eye Exam 10/20/2025 10/21/2023, 06/2023, 01/17/2022, Additional history exists Procedures Procedure Name Priority Date/Time Associated Diagnosis Comments POCT HEMOGLOBIN A1C Routine 11/04/2023 1 :55 PM CDT Type 1 diabetes mellitus with hyperglycemia (HCC) HM DIABETES EYE EXAM Routine 10/21/2023 9:17 AM CDT EGFR Routine 02/20/2023 3:44 PM BAG BLEACHER Type 1 diabetes mellitus with hyperglycemia (HCC) LIPID PANEL Routine 02/20/2023 3:44 PM BAG BLEACHER Type 1 diabetes mellitus with hyperglycemia (HCC) Mixed diabetic hyperlipidemia associated with type 1 diabetes mellitus (HCC) ALBUMIN CREATININE RATIO, URINE Routine 02/20/2023 3:44 PM BAG BLEACHER Type 1 diabetes mellitus with hyperglycemia (HCC) TSH Routine 02/20/2023 3:44 PM BAG BLEACHER Acquired hypothyroidism from Last 3 Months or Most Recently Relevant to Health Maintenance Results * (ABNORMAL) POCT hemoglobin A1c (11/04/2023 1:55 PM CDT) Hemoglobin A1C, POC 7.5 4.0 - 5.6 % Blood 11/04/2023 1:55 PM CDT Sarah Beth Turner NP POINT OF CARE TEST ORDERA BLES Final Result * HM DIABETES EYE EXAM (10/21/2023 9:17 AM CDT) us Historical Provider HEALTH MAINTENANCE Edited Result - Final * eGFR (02/20/2023 3:44 PM BAG BLEACHER) eGFR 100 mL/min/1. 73 m2 [facility] [...] last reviewed 2020. Blood 02/20/2023 3:44 PM BAG BLEACHER 02/21/2023 8:58 AM BAG BLEACHER us Sarah Beth Turner NP LAB BLOOD ORDERABLES Swathi l Result [facility] [id number] Department [place] [address] * Albumin Creatinine Ratio, Urine (02/20/2023 3:44 PM BAG BLEACHER) Albumin Ur 14.4 mg/L [facility] Comment: Interpretive Data No reference range established. Current interpretive data was last revised 2018. Creatinine Ur 163.6 mg/dL [facility] Comment: Interpretive Data No reference range established. Current interpretive data was last revised 2018. Albumin Creatinine Ratio, Ur 9 1 - 29 mg/g [facility] Urine 02/20/2023 3:44 PM BAG BLEACHER 02/21/2023 8:53 AM BAG BLEACHER Sarah Beth Turner HEARING AID DISPENSER LAB URINE ORDERABLES Swathi l Result Performing Organization Address [facility] Co de Phone Number [facility] [address] Department [place] [address] * TSH (02/20/2023 3:44 PM BAG BLEACHER) Thyroid Stimulating Hormone 2.84 0.30 - 4.20 mcIUnit/mL [facility] Blood 02/20/2023 3:44 PM BAG BLEACHER 02/21/2023 8:53 AM BAG BLEACHER Sarah Beth Turner NP LAB BLOOD ORDERABLES Swathi l Result Performing Organization Address [facility] Co de Phone Number [facility] [address] Department [place] [address] * (ABNORMAL) Lipid panel (02/20/2023 3:44 PM BAG BLEACHER) Cholesterol 230(H) 30 - 199 mg/dL [facility] Comment: Interpretive Data Ages < or = [...] on 2017. Triglycerides 288(H) <=149 mg/dL [facility] Comment: Interpretive Data Ages [...] Pediatrics 2011;128:S213 2. NCEP Expert Panel. Circulation 2003;110:227 Current Interpretive Data was last revised on [...] Pediatrics 2011;128:S213 2. NCEP Expert Panel. Circulation 2003;110:227 Current Interpretive Data was last revised on [...] 5 [facility] Blood 02/20/2023 3:44 PM BAG BLEACHER 02/21/2023 8:53 AM BAG BLEACHER us Sarah Beth Turner NP LAB BLOOD ORDERABLES Swathi l Result [facility] [address] Department [place] [address] from Last 3 Months or Most Recently Relevant to Health Maintenance Insurance [employer] ACCESS CHOICE Care Teams Cyber Analyst Relationship Specialty Start Date End Date Barb Carson NP [address] [place] [address] PCP - General Nurse Practitioner 11/04/23
--- OUTSIDE RECORDS SUMMARY | 2024-06-08 18:00 | XMS_ITS | Encounter Summary ---
Author Organization [facility] Address [address] [place] [address] Phone Care Team Providers Care Web Services Developer Name Role Phone Francisco Hill MD Primary Care Provider [phone] Reason for Visit * Reason Comments Medication Refill Encounter Details Date Type Department Care Team (Late st Contact Info) Description 01/31/2020 Refill [facility] - Internal Medicine - [place] [address] [place] [address] Francisco Hill MD [address] [place] [address] Medication Refill Social History Tobacco Use Types Packs/Day Years Used Date Smoking Tobacco: Never Assessed Sex and Gender Information Value Date Recorded Sex Assigned at Not on file Legal Sex Male 7:14 PM CDT Gender Identity Not on file Sexual Orientation Not on file documented as of this encounter Miscellaneous Notes * Telephone Encounter - Catalina Gu RN - 01/31/2020 4:02 PM CST Please review and sign. NICS SYSTEMS TECHNICIAN documented in this encounter Plan of Treatment Not on file documented as of this encounter Visit Diagnoses Not on filedocumented in this encounter Care Teams Web Services Developer Relationship Specialty Start Date End Date Francisco Hill MD [address] [place] [address] PCP - General Internal Medicine 11/12/19 04/06/24 documented as of this encounter
[2024-06-08 19:38] LABS: Alanine Aminotransferase 65 U/L (6-50); Albumin Level 4.6 g/dL (3.5-5.1); Alkaline Phosphatase 105 U/L (38-126); Anion Gap 10 mmol/L (4-12); Aspartate Amino Transferase 68 U/L (17-59); Bilirubin,Total 0.6 mg/dL (0.2-1.3); Blood Urea Nitrogen 17 mg/dL (9-20); Calcium 9.2 mg/dL (8.4-10.2); Carbon Dioxide 27 mmol/L (22-30); Chloride 102 mmol/L (98-107); Cholesterol 207 mg/dL (0-200); Estimated Glomerular Filt Rate > 60; Glucose 112 mg/dL (65-110); HDL Direct 65 mg/dL; Potassium 4.5 mmol/L (3.4-5.0); Sodium 139 mmol/L (137-145); Triglycerides 122 mg/dL (<150)
[2024-06-08 19:49] LABS: LDL Cholesterol Direct 85 mg/dL
[2024-06-08 20:07] LABS: Thyroid Stimulating Hormone 0.813 uIU/mL (0.465-4.680)
== END 2024-06-08 16:05 | disposition home or self-care (01) ==
LOC: ANHBWCLAB 16:06
PROVIDERS: PCP Nurse Practitioner Adult Health; Visit Provider Nurse Practitioner Adult Health
DX: E78.5 Hyperlipidemia, unspecified (principal); E03.9 Hypothyroidism, unspecified
CPT/HCPCS: 36415; 80053; 80061; 84443

== ENCOUNTER 2024-12-08 16:00 | Outpatient (CLI) | payer BC, SELFPAY ==
[2024-12-08 18:27] LABS: Hematocrit 49.7 % (42.0-52.0); Hemoglobin 17.1 g/dL (14.0-18.0); Mean Corpuscular HGB Conc 34.4 g/dl (32-36); Mean Corpuscular Hemoglobin 30.5 pg (26-34); Mean Corpuscular Volume 88.6 fl (80-100); Platelet Count Result 279 k/mm3 (150-375); Red Blood Count 5.61 M/mm3 (4.6-6.20); White Blood Count 8.1 K/mm3 (4.5-10.0)
[2024-12-08 18:39] LABS: Alanine Aminotransferase 56 U/L (6-50); Albumin Level 4.6 g/dL (3.5-5.1); Alkaline Phosphatase 103 U/L (38-126); Anion Gap 7 mmol/L (4-12); Aspartate Amino Transferase 54 U/L (17-59); Bilirubin,Total 1.0 mg/dL (0.2-1.3); Blood Urea Nitrogen 17 mg/dL (9-20); Calcium 9.4 mg/dL (8.4-10.2); Carbon Dioxide 29 mmol/L (22-30); Chloride 101 mmol/L (98-107); Cholesterol 181 mg/dL (0-200); Estimated Glomerular Filt Rate > 60; Glucose 110 mg/dL (65-110); HDL Direct 69 mg/dL; Potassium 4.2 mmol/L (3.4-5.0); Sodium 137 mmol/L (137-145); Total Protein 7.8 g/dL (6.3-8.2); Triglycerides 118 mg/dL (<150)
[2024-12-08 19:15] LABS: Prostate Specific Antigen 0.5 ng/mL (< OR = 4.0); Thyroid Stimulating Hormone 1.250 uIU/mL (0.465-4.680)
[2024-12-08 19:23] LABS: Hemoglobin A1C 7.3 % (<5.7)
[2024-12-08 19:43] LABS: MALB Creatinine Ratio 7.4 mg/g (0-30)
--- OUTSIDE RECORDS SUMMARY | 2024-12-08 20:05 | XMS_ITS | Encounter Summary ---
Author Organization [facility] Address [address] [place] [address] Phone Care Team Providers Care Chain Machine Operator Name Role Phone Francisco Hill MD Primary Care Provider [phone] Reason for Visit * Reason Comments Medication Refill Encounter Details Date Type Department Care Team (Late st Contact Info) Description 01/31/2020 Refill [facility] - Internal Medicine - [place] [address] [id number] Francisco Hill MD [address] [place] [address] Medication Refill Social History Tobacco Use Types [...] 4:02 PM CST Please review and sign. NISTRATIVE SUPERVISOR documented in this encounter Plan of Treatment Not on file documented as of this encounter Visit Diagnoses Not on filedocumented in this encounter Care Teams Chain Machine Operator Relationship Specialty Start Date End Date Francisco Hill MD PCP - General Internal Medicine 11/12/19 04/06/24 documented as of this encounter
--- OUTSIDE RECORDS SUMMARY | 2024-12-08 20:05 | XMS_ITS | Clinical Summary ---
Author Organization [facility] Address [address] [place] [address] Phone Care Team Providers Care Driver Supervisor Name Role Phone Unavailable Primary Care Provider [...] Comments Blood Pressure 110/68 03/09/2020 4:14 PM HAND WELT BUTTER Pulse 84 03/09/2020 4:14 PM HAND WELT BUTTER Temperature 36.7 C (98 F) 03/09/2020 4:14 PM HAND WELT BUTTER Respiratory Rate - - Oxygen Saturation - - Inhaled Oxygen Concentration - - Weight 111.6 kg (246 lb) 03/09/2020 4:14 PM HAND W[employer] BUTTER Height 182.9 cm (6') 03/09/2020 4:14 PM HAND W[employer]T BUTTER Body Mass Index 33.36 03/09/2020 4:14 PM HAND WELT BUTTER Plan of Treatment Health Maintenance Due Date Last Done Comments Diabetes: Eye Exam 1972 Diabetes: Foot Exam 1972 Hepatitis C Virus (HCV) Screening 1972 TdaP Immunization 1972 Hepatitis B Immunization (1 of 3 - 19+ 3-dose series) 10/31/1991 Pneumococcal Immunization (5 0+ years) (1 of 2 - PCV) 10/31/1991 Cologuard 2017 Colonoscopy 2017 Colorectal Cancer Screening 2017 Immunochemical Fecal Occult Blood 2017 Diabetes: Hemoglobin A1c 09/07/2020 03/10/2020 Diabetes: Nephropathy Screening 03/10/2021 03/10/2020, 03/10/2020, 03/23/2019 Zoster Immunization (1 of 2) 2022 Influenza Immunization (#1) 2024 SARS-COV-2 Immunization ( season) 2024 02/12/2021, 05/09/2020, 04/18/2020 Respiratory Syncytial Virus (RSV) Immunization (Adult) (1 - 1-dose 75+ series) 10/31/2047 Human Papillomavirus (HPV) Immunization Aged Out No longer eligible b ased on patient's age to complete this topic Meningococcal Immunization (ACWY) Aged Out No longer [...]
--- OUTSIDE RECORDS SUMMARY | 2024-12-08 20:05 | XMS_ITS | Clinical Summary ---
Author Organization [facility] Address [address] [place] [address] Care Team Providers Care Treasury Manager Name Role Phone Barb Carson NP Primary Care Provider [phone] Allergies Active Allergy Reactions Criticality Noted Date Comments Dapagliflozin Other (See comments) Low 05/10/2021 Severe fungal balanitis Medications glucagon (glucagon) 1 mg kit use for major hypoglycemia 2 kit 3 12/04/19 12 Active pen needle, diabetic (UNIFINE PENTIPS PLUS) 31 gauge x 5/16 needle 3 x a day 100 4 05/16/19 11 Active insulin pump syringe (MINIMED SYRINGE RESERVOIR) 3 mL misc pt changes site every 2 days 45 each 3 06/19/19 12 Active infusion set for insulin pump (MINIMED INFUSION SET) infusion set pt changes site every 2 days 45 3 06/19/19 12 Active sildenafil (VIAGRA) 100 mg tablet TAKE 1 TABLET BY MOUTH ONCE DAILY NEEDED FOR ED 2 08/18/19 19 Active blood glucose diagnostic (CONTOUR NEXT TEST STRIPS) stripIndications: Type 1 diabetes mellitus with hyperglycemia (HCC) USE TO TEST GLUCOSE 6 TIMES DAILY 600 each 3 11/14/19 19 Active cholecalciferol (VITAMIN D-3) 2000 unit capsule 1 capsule (2,000 Units total) Active multivitamin capsule Take 1 capsule by mouth daily Active fish oil-dha-epa 1,200-144-216 mg capsule Take by mouth Active albuterol HFA (PROVENTIL HFA,VENTOLIN HFA,PROAIR HFA) 90 mcg/actuation inhaler INHALE 2 PUFFS BY MOUTH FOUR TIMES DAILY NEEDED FOR SHORTNESS OF BREATH OR WHEEZING 05/16/19 23 Active insulin lispro (HumaLOG) 100 unit/mL vial for injectionIndicati ons:Type 1 diabetes mellitus with hyperglycemia (HCC) Please use as prescribed. 10 mL 1 06/27/19 24 Active phentermine (ADIPEX-P) 37.5 mg tablet TAKE 1 TABLET BY MOUTH DAILY 30 MINUTES BEFORE OR 1 TO 2 HOURS AFTER BREAKFAST 10/30/19 24 Active Mounjaro 15 mg/0.5 mL pen injector ADMINISTER 15 MG UNDER THE SKIN WEEKLY 10/15/19 24 Active potassium gluconate 595 mg (99 mg) tablet Take 1 tablet (595 mg total) by mouth daily Active pravastatin (PRAVACHOL) 80 mg tabletIndications :Type 1 diabetes mellitus with hyperglycemia (HCC) TAKE 1 TABLET DAILY 90 tablet 3 03/29/19 25 Active levothyroxine (SYNTHROID) 200 mcg tabletIndications :Type 1 diabetes mellitus with hyperglycemia (HCC) TAKE 1 TABLET DAILY 90 tablet 3 03/29/19 25 Active insulin lispro (HumaLOG) 100 unit/mL vial for injectionIndicati ons:Type 1 diabetes mellitus with hyperglycemia (HCC) INJECT 150 UNITS UNDER THE SKIN DAILY VIA INSULIN PUMP 140 mL 3 06/04/19 25 Active insulin glargine 100 unit/mL (3 mL) pen for injectionIndicati ons:Type 1 diabetes mellitus with hyperglycemia (HCC) Inject 72 Units under the skin nightly 15 mL 1 06/16/19 25 Active Active Problems Problem Noted Date Diagnosed [...] 01/23/2021 Assessment & Plan (01/24/2022 3:48 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 He requests vitamin D level, ordered. States he had testosterone level checked with PCP and was reasonable per pt, they wanted him to try to treat the sleep apnea first. Assessment & Plan (01/23/2021 4:29 PM CRIMPER ASSEMBLER): Patient with history of a sleep apnea, not using his CPAP machine Will check testosterone levels Mixed diabetic hyperlipidemi a associated with type 1 diabetes mellitus 10/22/2018 Assessment & Plan (06/15/2024 2:20 PM CDT): Chronic problem. Currently taking Pravastatin 40mg Last lipid panel: 06/08/24 LDL=85, QR=627. Assessment & Plan (11/04/2023 2:00 PM CDT): Chronic problem. Currently taking Pravastatin 40mg Last lipid panel: 02/21/24 VGK=658, VD=963. Assessment & Plan (02/20/2023 3:31 PM CRIMPER ASSEMBLER): Chronic problem. Currently taking Pravastatin 80mg (increased after below labs drawn). Last lipid panel: 01/24/22 PMG=326, DL=325. Will update labs today. Verified that he uses [employer]. Aware to check results/results letter in [employer]. Will contact by phone if needed. Assessment & Plan (11/04/2022 3:47 PM CDT): Chronic problem. Currently taking Pravastatin 80mg (increased after below labs drawn). Last lipid panel: 01/24/22 MAI=764, NL=120. No changes at this time. Assessment & Plan (07/29/2022 4:37 PM CDT): Chronic problem. Has increased Pravastatin to 80mg. Last lipid panel: 01/24/22 WPP=022, CN=338. No changes at this time. Assessment & Plan (01/24/2022 3:47 PM CRIMPER ASSEMBLER): Chronic problem. On statin therapy, no changes. Assessment & Plan (07/25/2020 4:07 PM CDT): Elevated TG Will consider adding Vascepa Patient is on Pravachol Assessment & Plan (03/23/2020 4:34 PM CRIMPER ASSEMBLER): Goal of treatment , LDL cholesterol less [...] Pravachol Assessment & Plan (03/04/2019 3:57 PM CRIMPER ASSEMBLER): Goal of treatment , LDL cholesterol less [...] mellitus with hyperglycemia 10/19 Assessment & Plan (06/15/2024 2:50 PM CDT): Chronic problem. A1c near goal and improved slightly from 7.5% 11/04/23 to now 7.3% 06/08/24. No pump setting changes today. Had 2 recent vacations. Will improve diet now. Current medications: Phentermine 37.5mg daily Mounjaro 15mg weekly Humalog via Medtronic 780G insulin pump BR 12a 1.5, 5a 3, 9a 1.5 CR 2 CF 5 Target 120 AIT 2hr UTD on labs UTD on DM eye exam (10/21/23 no DMR [facility]) . Strive for regular exercise (30min most days) and diet (get at least 4-5 servings of fruit and veggies daily, avoid processed foods, increase lean protein intake and decrease carb portions as well as fruit juices, regular soda & desserts). Watch carbs and simple sugars. Check the blood sugar guardian sensor. Check the feet daily for skin breakdown and infection. Assessment & Plan (11/04/2023 2:48 PM CDT): [...] exam (02/21/23 no DMR [facility] in [place]) . Strive for regular exercise (30min most [...] infection. Assessment & Plan (02/20/2023 3:30 PM CRIMPER ASSEMBLER): Chronic problem. A1c near goal but still [...] update labs today. Verified that he uses [facility]. Aware to check results/results letter in [employer]. Will contact by phone if needed. DM eye exam scheduled tomorrow at [facility] in [place]. Letter sent to get copy of report. [...] been wearing Guardian 3 sensor. Has contacted [employer] re: upgrading to 780G. Intolerance to SGLT2i [...] 120 Assessment & Plan (01/24/2022 3:50 PM CRIMPER ASSEMBLER): Chronic problem, not at goal. Showed him [...] 120 Assessment & Plan (01/23/2021 4:28 PM CRIMPER ASSEMBLER): Hba1c was Lab Results Component Value Date HGBA1C 7.8 01/23/2021 today, indicating inadequate DM control, with severe insulin resistance, needing very high dose of insulin [place] importance of exercise was discussed in order [...] weeks Assessment & Plan (03/23/2020 4:34 PM CRIMPER ASSEMBLER): Hba1c was Lab Results Component Value Date [...] system Assessment & Plan (03/04/2019 3:57 PM CRIMPER ASSEMBLER): Hba1c was Lab Results Component Value Date [...] goal hba1c is under 7.0 to prevent extermination inspector diabetes complications ( eye , kidney and [...] efforts. Assessment & Plan (02/20/2017 4:27 PM CRIMPER ASSEMBLER): A1c 6.1 without lows. Has made appropriate adjustments to lifestyle and insulin pump. Continue to assess trends and adjust as indicated. Assessment & Plan (11/08/2016 10:01 AM CDT): A1c 8.0. Continue to wear sensor. Advised follow up with GI to determine any other issues that may be impacting pc Bg. Insulin pump status 11/08/2016 Assessment & Plan (06/15/2024 2:50 PM CDT): No pump setting changes today. Had 2 recent vacations. Will improve diet now. Have long acting , basal insulin ( e.g. Lantus, NPH) and insulin syringes as back up in case of pump failure. If you have to take your insulin pump off for more than 12 hours, start taking basal insulin every 24 h (take 80 % of the 24 hour insulin delivered to you via insulin pump as calculated based on your basal rates) and inject meal time insulin by injections, calculating the same way you do with your pump bolus (according to carb intake and blood sugar readings). TDD 90 units. 80%=72 units long acting daily. Assessment & Plan (11/04/2023 2:40 PM CDT): Current medications: Phentermine 37.5mg daily Mounjaro 15mg weekly Humalog via [employer] 780G insulin pump BR 12a 1.5, 5a 3, 9a 1.5 CR 2 CF 5 Target 120 AIT 2hr Assessment & Plan (02/20/2023 3:19 PM CRIMPER ASSEMBLER): No pump setting changes. Has upgraded to 780G with Guardian 4 sensor. Assessment & Plan (11/04/2022 3:46 PM CDT): No pump setting changes. Assessment & Plan (07/29/2022 4:32 PM CDT): No pump setting changes. Assessment & Plan (01/24/2022 3:48 PM CRIMPER ASSEMBLER): No pump setting changes. Assessment & Plan (03/23/2020 4:35 PM CRIMPER ASSEMBLER): Have long acting , basal insulin ( [...] ) Assessment & Plan (04/16/2018 3:55 PM CRIMPER ASSEMBLER): Advised to increased MN and 0900 by 0.2 weekly until trend improved. Advised to contact [employer] to provide replacement pump. Provided with GeraldChattyo sample and instructed how to use in [...] control. Assessment & Plan (02/20/2017 4:27 PM CRIMPER ASSEMBLER): No change to pump settings. Assessment & Plan (11/08/2016 10:03 AM CDT): He is supposed to be upgrading to 670G which should help stabilize some of the fluctuations in his BG pattern. Will adjust rates as indicated at that time. Hypothyroidism 03/29/2013 Overview (05/24/2016): HYPOTHYROIDISM NOS Assessment & Plan (06/15/2024 2:19 PM CDT): Chronic problem. Clinically & biochemically euthyroid on current levothyroxine 200mcg daily. 06/08/24 labs not yet scanned in but reviewed at time of appt: TSH=0.813 (0.465-4.680) Assessment & Plan (11/04/2023 1:58 PM CDT): Chronic problem. Clinically & biochemically euthyroid on current levothyroxine 200mcg daily. Assessment & Plan (02/20/2023 3:30 PM CRIMPER ASSEMBLER): Chronic problem. Currently taking levothyroxine 200mcg daily. Clinically & biochemically euthyroid. Will update TFTs today. Verified that he uses [employer]. Aware to check results/results letter in [employer]. Will contact by phone if needed. Assessment & Plan (11/04/2022 3:40 PM CDT): Chronic problem. Currently taking levothyroxine 200mcg daily. Clinically & biochemically euthyroid. Will update TFTs again at next OV. Assessment & Plan (07/29/2022 4:35 PM CDT): Chronic problem. States that he's been taking levothyroxine 200mcg (instead of the 100mcg per chart). Will update TFTs today. Verified that he uses [employer]. Aware to check results/results letter in [employer]. Will contact by phone if needed. Assessment & Plan (01/24/2022 3:47 PM CRIMPER ASSEMBLER): Clinically and biochemically euthyroid. No medication changes. Update TFTs. Assessment & Plan (01/23/2021 4:29 PM CRIMPER ASSEMBLER): Uncontrolled Increase levothyroxine to 100 mcg daily [...] meds. Assessment & Plan (03/23/2020 4:39 PM CRIMPER ASSEMBLER): Continue Levothyroxine at 88 mcg daily Assessment & Plan (03/04/2019 3:56 PM CRIMPER ASSEMBLER): Will check TSH and free T4 Will [...] dose. Assessment & Plan (04/16/2018 3:56 PM CRIMPER ASSEMBLER): Will check TFT's and adjust medication as indicated. Assessment & Plan (05/22/2017 4:10 PM CDT): TSH at goal on current dose of thyroid replacement Assessment & Plan (02/20/2017 4:29 PM CRIMPER ASSEMBLER): Will review recent labs and adjust medication as indicated. Assessment & Plan (11/08/2016 9:55 AM CDT): Reviewed appropriate way to take medication. Check labs in 8 weeks. Resolved Problems Problem Noted Date Diagnosed Date Resolved Date Non morbid obesity due to excess calories 11/08/2016 07/29/2022 Assessment & Plan (02/20/2017 4:27 PM CRIMPER ASSEMBLER): Continue weight loss efforts. Assessment & Plan (11/08/2016 9:55 AM CDT): Importance of following diet and exercising discussed. Type 1 diabetes mellitus without complication 06/16/19 14 02/20/2023 Overview (05/24/2016): DMI WO CMP NT ST [facility] Pure hypercholesterolemia 03/29/2013 Overview (05/24/2016): PURE HYPERCHOLESTEROLEM Assessment & Plan (04/16/2018 3:56 PM CRIMPER ASSEMBLER): Check lipid panel Assessment & Plan (08/28/2017 4:22 PM CDT): Continue statin and diet efforts. Advised to make low fat choices on high protein diet. Assessment & Plan (05/22/2017 4:12 PM CDT): LDL elevated a bit but on high protein diet with red meat and eggs. Recommend decreasing amount of red meat. Assessment & Plan (02/20/2017 4:28 PM CRIMPER ASSEMBLER): Will obtain and review results of recent labs. Assessment & Plan (11/08/2016 9:57 AM CDT): Check labs Pure hyperglyceridemia 11/03/200607/29 Overview (05/24/2016): PURE HYPERGLYCERIDEMIA Surgical History Surgery Date Site/Laterality Comments GASTRIC BYPASS 2007 Gastric bypass Medical History Medical History Date Comments Disorder of thyroid Thyroid dise ase Diabetes mellitus type I Family History Medical History Relation Name Comments Diabetes type II Other Family hist ory of Diabetes -Type 2; Relation Name Status Comments Other Social History Tobacco Use Types Packs/Day Years Used Date Smoking Tobacco: Never Smokeless Tobacco: Never Alcohol Use Standard Drinks/Week Comments Yes 0 (1 standard drink = 0.6 oz pur e alcohol) PHQ-2 Answer Date Recorded PHQ-2 Total Score (If total score is 3 or more points, staff should administer the PHQ-9) 0 05/10/2021 Sex and Gender Information Value Date Recorded Sex Assigned at Not on file Legal Sex Male 8:08 AM CRIMPER ASSEMBLER Gender Identity Not on file Sexual Orientation Not on file Obstetrics History Last Filed Vital Signs Vital Sign Reading Time Taken Comments Blood Pressure 112/78 06/15/2024 2:52 PM CDT Pulse 90 06/15/2024 2:04 PM CDT Temperature - - Respiratory Rate 16 06/15/2024 2:04 PM CDT Oxygen Saturation - - Inhaled Oxygen Concentration - - Weight 105.7 kg (233 lb) 06/15/2024 2:04 PM CDT Height 177.8 cm (5' 10) 06/15/2024 2:04 PM CDT Body Mass Index 33.43 06/15/2024 2:04 PM CDT Plan of Treatment Health Maintenance Due Date Last Done Comments Colon Cancer Screening-Colonoscopy 1972 Hepatitis C Screening 1972 Prostate Cancer Screening-PSA 1972 DTaP/Tdap/Td Vaccine (1 - Tdap) 10/31/1983 Hepatitis B Screening 1990 Regular Well Visit/Exam 18-64 1990 Pneumococcal vaccine <65 (1 of 2 - PCV) 10/31/1991 Depression Screening 05/10/2022 05/10/2021, 07/25/2020, 03/04/2019, Additional history exists Zoster Vaccine (1 of 2) 2022 Influenza Vaccine (#1) 2024 Albumin Creatinine Ratio, Urine 12/09/2024 12/10/2023, 02/20/2023, 01/24/2022, Additional history exists Hemoglobin A1C 12/15/2024 06/15/2024, 10/18, 02/20/2023, Additional history exists Lipid Panel 06/08/2025 06/08/2024, 05/2023, 01/24/2022, Additional history exists TSH Level 06/08/2025 06/08/2024, 0 05/2023, 07/29/2022, Additional history exists eGFR 06/08/2025 06/08/2024, 0 05/2023, 01/24/2022, Additional history exists Foot Exam 06/15/2025 06/15/2024, 10/18, 07/29/2022, Additional history exists Dilated Eye Exam 10/20/2025 10/21/2023, 06/2023, 01/17/2022, Additional history exists Procedures Procedure Name Priority Date/Time Associated Diagnosis Comments POCT HEMOGLOBIN A1C Routine 06/15/2024 2 :08 PM CDT Type 1 diabetes mellitus with hyperglycemia (HCC) COMPREHENSIVE METABOLIC PANEL Routine 06/08/2024 4:10 PM CDT LIPID PANEL Routine 06/08/2024 4:10 PM CDT TSH Routine 06/08/2024 4:10 PM CDT ALBUMIN CREATININE RATIO, URINE Routine 12/10/2023 12:14 PM CDT HM DIABETES EYE EXAM Routine 10/21/2023 9:17 AM CDT from Last 3 Months or Most Recently Relevant to Health Maintenance Results * (ABNORMAL) POCT hemoglobin A1c (06/15/2024 2:08 PM CDT) Hemoglobin A1C, POC 8.1 4.0 - 5.6 % Blood 06/15/2024 2:08 PM CDT Sarah Beth Turner WHEEL GRINDER POINT OF CARE TEST ORDERA BLES Final Result * TSH (06/08/2024 4:10 PM CDT) Scribed TSH 0.81 0.47 - 4.68 mcU/mL EXTERNAL LAB Blood 06/08/2024 4:10 PM CDT Historical Provider LAB BLOOD ORDERABLES Edit ed Result - Final Performing Organization Address City/[facility]/ZIP Co de Phone Number EXTERNAL LAB * (ABNORMAL) Lipid panel (06/08/2024 4:10 PM CDT) SCRIBED Cholesterol, Total 207(A) 30 - 199 mg/dL EXTERNAL LAB SCRIBED Triglycerides 122 <=149 mg/dL EXTERNAL LAB SCRIBED HDL 65 >=40 mg/dL EXTERNAL LAB SCRIBED LDL 85 <=129 mg/dL EXTERNAL LAB Scribed Non-HDL Cholesterol 0 NONE mg/dL EXTERNAL LAB Comment:No value received SCRIBED Total Cholesterol/HDL Ratio 207 NONE EXTERNAL LAB Blood 06/08/2024 4:10 PM CDT Historical Provider MD LAB BLOOD ORDERABLES Edit ed Result - Final EXTERNAL LAB * (ABNORMAL) Comprehensive metabolic panel (06/08/2024 4:10 PM CDT) SCRIBED Sodium 139 137 - 145 mmol/L EXTERNAL LAB SCRIBED Potassium 4.5 3.4 - 5.0 mmol/L EXTERNAL LAB SCRIBED Chloride 102 98 - 107 mmol/L EXTERNAL LAB SCRIBED Carbon Dioxide 27 22 - 30 mmol/L EXTERNAL LAB SCRIBED Anion Gap 10 4 - 12 mmol/L EXTERNAL LAB SCRIBED Urea Nitrogen (BUN) 17 9 - 20 mg/dl EXTERNAL LAB SCRIBED Creatinine 0.83 0.7 - 1.3 mg/dl EXTERNAL LAB SCRIBED Glucose 112(A) 65 - 110 mg/dl EXTERNAL LAB SCRIBED Calcium 9.2 8.4 - 10.2 mg/dl EXTERNAL LAB SCRIBED Bilirubin 0.6 0.2 - 1.3 mg/dl EXTERNAL LAB SCRIBED Plasma Protein 8.0 6.3 - 8.2 g/dl EXTERNAL LAB SCRIBED Albumin 4.6 3.5 - 5.1 g/dl EXTERNAL LAB SCRIBED Alkaline Phosphatase 105 38 - 126 Units/L EXTERNAL LAB SCRIBED Alanine Transaminase (ALT) 65(A) 6 - 50 Units/L EXTERNAL LAB SCRIBED Aspartate Transaminase (AST) 68(A) 17 - 59 Units/L EXTERNAL LAB SCRIBED eGFR >60 >59 - NA EXTERNAL LAB Blood 06/08/2024 4:10 PM CDT Historical Provider LAB BLOOD ORDERABLES Edit ed Result - Final EXTERNAL LAB * Albumin Creatinine Ratio, Urine (12/10/2023 12:14 PM CDT) SCRIBED Creatinine, Urine 151.7 NA - NA EXTERNAL LAB SCRIBED Microalbumin 8.5 0 - 16.7 EXTERNAL LAB SCRIBED Microalb/Creat Ratio 5.6 0 - 30 EXTERNAL LAB Urine 12/10/2023 12:1 4 PM CDT Historical Provider LAB URINE ORDERABLES Edit ed Result - Final EXTERNAL LAB * HM DIABETES EYE EXAM (10/21/2023 9:17 AM CDT) Historical Provider HEALTH MAINTENANCE Edited Result - Final from Last 3 Months or Most Recently Relevant to Health Maintenance Insurance ANTHEM ACCESS CHOICE ANTHEM ACCESS CHOICE Care Teams Treasury Manager Relationship Specialty Start Date End Date Barb Carson NP [address] [place] [id number] PCP - General Nurse Practitioner 11/04/23
== END 2024-12-08 16:01 | disposition home or self-care (01) ==
PROVIDERS: PCP Nurse Practitioner Adult Health; Visit Provider Nurse Practitioner Adult Health
DX: E03.9 Hypothyroidism, unspecified (principal); E10.9 Type 1 diabetes mellitus without complications; Z12.5 Encounter for screening for malignant neoplasm of prostate
CPT/HCPCS: 36415; 80053; 80061; 82043; 82565; 83036; 84153; 84443; 85027; G0103